=== PATIENT | female | born 1940 | race Caucasian/White ===

== ENCOUNTER → 2017-03-26 | Outpatient (CLI) | payer OTHER | LOC: RAD 13:10 | DX: R06.00 Dyspnea, unspecified (principal) ==

== ENCOUNTER 2019-06-27 19:20 | Emergency (ER) | payer OTHER ==
[~2019-06-27] VITALS: Ht 154.9 cm; Wt 56.7 kg
[2019-06-27 20:00] LABS: BASOPHILS 0.8 % (0.0-2.0); EOSINOPHILS 4.2 % (0.0-3.0); HEMATOCRIT 32.1 % (37.0-47.0); HEMOGLOBIN 10.8 gm/dL (12.0-15.0); MCH 29.5 pg (26.0-34.0); MCHC 33.6 g/dL (28.0-37.0); MCV 87.9 fL (80.0-100.0); MONOCYTES 9.8 % (1.0-8.0); PLATELET COUNT 413 thou/uL (150-400); POLYS 62.2 % (36.0-66.0); RBC 3.65 mil/uL (4.20-5.00); WBC 6.4 thou/uL (4.0-11.0)
[2019-06-27 20:10] VITALS: BP 97/57
[2019-06-27 20:11] LABS: ANION GAP 10 mmol/L (7-16); BUN 31 mg/dL (7-18); CALCIUM 8.6 mg/dL (8.5-10.1); CHLORIDE 97 mmol/L (98-107); CO2 22 mmol/L (21-32); CREATININE 1.6 mg/dL (0.6-1.0); GLUCOSE 111 mg/dL (74-106); POTASSIUM 4.3 mmol/L (3.5-5.1); SODIUM 129 mmol/L (136-145)
[2019-06-27] MEDS ORDERED: LUTEIN6 MG PO (20:11)
[2019-06-27] MEDS ORDERED: VITAMIN B-6100 MG PO (20:11)
[2019-06-27] MEDS ORDERED: LISINOPRIL20 MG PO (20:11)
[2019-06-27] MEDS ORDERED: SERTRALINE HCL50 MG PO (20:11)
[2019-06-27] MEDS ORDERED: SINGULAIR 10 MG10 M1 PO (20:11)
[2019-06-27] MEDS ORDERED: FUROSEMIDE 40 M40 MG PO (20:11)
[2019-06-27] MEDS ORDERED: KLOR-CON M2020 MEQ PO (20:11)
[2019-06-27] MEDS ORDERED: LEVALBUTEROL TA15 GM INH (20:12)
[2019-06-27] MEDS ORDERED: SPIRIVA18 MCG INH (20:12)
[2019-06-27] MEDS ORDERED: FOLIC ACID1 MG PO (20:12)
[2019-06-27] MEDS ORDERED: FLONASE 0.05%50 MCG NARES (20:12)
[2019-06-27] MEDS ORDERED: DILTIAZEM HCL30 MG PO (20:12)
[2019-06-27] MEDS ORDERED: QVAR REDIHALE10.6 G1 INH (20:13)
[2019-06-27 20:22] LABS: ALBUMIN 3.8 g/dL (3.4-5.0); SGOT 18 U/L (15-37); SGPT 25 U/L (30-65); TOTAL BILIRUBIN 0.3 mg/dL (<0.1-1.0); TOTAL PROTEIN 7.4 g/dL (6.4-8.2); TROPONIN-I <0.06 ng/mL (<0.06)
--- NOTE | 2019-06-28 09:01 | EKG ---
[facility] [place] [address] ELECTROCARDIOGRAM REPORT Name: SHELLIE LOVELL [id number] Admission: 06/27/19 Attend Phys: Discharge: 06/27/19 Date of : 42 Report #: [id number] THIS REPORT FOR: cc: Fer Arguello MD, Michael J. MD Couchonnal, Luis F. MD ~ THIS REPORT FOR: //name// [facility] ED Test Date: 2019-06-27 Test Time: 19:54:02 Pat Name: SHELLIE LOVELL Department: Room: Gender: F Administrative Underwriter: gudelia : 1940 Requested By: Theodore Tobias Order Number: [id number] MD: Humble Bowens Measurements Intervals [place] Rate: 67 P: 70 MA: 130 QRS: 34 QRSD: 79 T: 38 QT: 418 QTc: 442 Interpretive Statements Sinus rhythm Abnormal R-wave progression, early transition Compared to ECG 11/12/1999 19:28:56 Poor R-wave progression no longer present Electronically Signed On 06-28-2019 8:59:18 CDT by Humble Bowens [email or web address] <ELECTRONICALLY SIGNED> By: Humble Bowens MD 06/28/1958 53 53 Humble Bowens MD /EPI
== END 2019-06-27 21:32 | disposition home or self-care (01) ==
LOC: ER 19:20
PROVIDERS: Emergency Medicine
DX: S60.012A Contusion of left thumb without damage to nail, initial encounter (principal); S09.90XA Unspecified injury of head, initial encounter; R07.89 Other chest pain; Z79.899 Other long term (current) drug therapy; Z88.6 Allergy status to analgesic agent; V43.62XA Car passenger injured in collision with other type car in traffic accident, initial encounter; Y93.89 Activity, other specified; Y92.89 Other specified places as the place of occurrence of the external cause; Y99.8 Other external cause status

== ENCOUNTER 2019-11-20 16:10 | Emergency (ER) | payer OTHER, BC ==
[~2019-11-20] VITALS: Ht 154.9 cm; Wt 56.7 kg
[~2019-11-20 16:10] MED LIST: DILTIAZEM HCL30 MG PO; FLONASE 0.05%50 MCG NARES; FOLIC ACID1 MG PO; FUROSEMIDE 40 M40 MG PO; KLOR-CON M2020 MEQ PO; LEVALBUTEROL TA15 GM INH; LISINOPRIL20 MG PO; LUTEIN6 MG PO; QVAR REDIHALE10.6 G1 INH; SERTRALINE HCL50 MG PO; SINGULAIR 10 MG10 M1 PO; SPIRIVA18 MCG INH; VITAMIN B-6100 MG PO
[2019-11-20] MEDS ORDERED: MOBIC7.5 MG PO (18:09)
[2019-11-20 19:18] VITALS: BP 132/88
== END 2019-11-20 19:18 | disposition home or self-care (01) ==
LOC: ER 16:10
DX: M25.552 Pain in left hip (principal); Z79.899 Other long term (current) drug therapy; Z88.5 Allergy status to narcotic agent

== ENCOUNTER → 2019-11-23 | Emergency (ER) | payer OTHER, BC ==
[~2019-11-23] VITALS: Ht 154.9 cm; Wt 54.4 kg
[~2019-11-23] MED LIST changes: +MOBIC7.5 MG PO; +PROTONIX 20 MG20 MG PO
[2019-11-23 12:42] VITALS: BP 141/74
[2019-11-23 13:33] LABS: ABSOLUTE NEUTROPHILS 8.8 thou/uL (1.4-8.2); BASOPHILS 0.3 % (0.0-2.0); HEMATOCRIT 31.5 % (37.0-47.0); HEMOGLOBIN 10.4 gm/dL (12.0-15.0); LYMPHOCYTES 7.8 % (24.0-44.0); MCH 29.3 pg (26.0-34.0); MCHC 33.1 g/dL (28.0-37.0); MCV 88.4 fL (80.0-100.0); MONOCYTES 2.6 % (1.0-8.0); PLATELET COUNT 393 thou/uL (150-400); POLYS 88.3 % (36.0-66.0); RBC 3.57 mil/uL (4.20-5.00); RDW 15.3 % (10.5-14.5)
[2019-11-23 13:41] LABS: ANION GAP 10 mmol/L (7-16); BUN 29 mg/dL (7-18); CALCIUM 8.8 mg/dL (8.5-10.1); CHLORIDE 95 mmol/L (98-107); CO2 25 mmol/L (21-32); CREATININE 1.5 mg/dL (0.6-1.0); GLUCOSE 140 mg/dL (74-106); POTASSIUM 3.9 mmol/L (3.5-5.1); SODIUM 130 mmol/L (136-145)
[2019-11-23 13:50] LABS: TROPONIN-I <0.06 ng/mL (<0.06)
--- NOTE | 2019-11-23 16:10 | EKG ---
[facility] [place] [address] ELECTROCARDIOGRAM REPORT Name: SHELLIE LOVELL Room #: REG [facility].#: [id number] Admission: 11/23/19 Attend Phys: Discharge: Date of : 42 Report #: [id number] THIS REPORT FOR: cc: Glenn Rivera MD, Neal A. MD Santiago, Patrick MD [facility] ~ THIS REPORT FOR: //name// [facility] ED Test Date: 2019-11-23 Test Time: 12:59:40 Pat Name: SHELLIE LOVELL Department: Room: Gender: F New Media Strategist: [facility] : 1940 Requested By: Hawk Torres Order Number: [id number] MD: Russell Glez Measurements Intervals [place] Rate: 65 P: 64 DC: 144 QRS: 49 QRSD: 75 T: 56 QT: 440 QTc: 458 Interpretive Statements Sinus rhythm Abnormal R-wave progression, early transition Compared to ECG 06/27/2019 19:54:02 No significant changes Electronically Signed On 11-23-2019 16:10:15 CDT by Russell Glez [email or web address] <ELECTRONICALLY SIGNED> By: Russell Glez MD, FACC 11/23/19 1610 1259 1259 Russell Glez MD, [facility] /EPI
== END ==
LOC: ER 12:38
PROVIDERS: Emergency Medicine
DX: R06.02 Shortness of breath (principal); Z79.899 Other long term (current) drug therapy; Z88.5 Allergy status to narcotic agent; Z20.828 Contact with and (suspected) exposure to other viral communicable diseases

== ENCOUNTER 2019-11-28 15:24 | Inpatient (IN) | payer OTHER, BC ==
[~2019-11-28] VITALS: Ht 154.9 cm; Wt 59.0 kg
[2019-11-28 15:25] VITALS: BP 147/108
[2019-11-28 16:50] LABS: HEMATOCRIT 29.6 % (37.0-47.0); HEMOGLOBIN 9.8 gm/dL (12.0-15.0); MCH 29.3 pg (26.0-34.0); MCHC 33.2 g/dL (28.0-37.0); MCV 88.3 fL (80.0-100.0); RBC 3.36 mil/uL (4.20-5.00); WBC 8.8 thou/uL (4.0-11.0)
[2019-11-28 17:04] LABS: ANION GAP 8 mmol/L (7-16); BUN 20 mg/dL (7-18); CALCIUM 8.8 mg/dL (8.5-10.1); CHLORIDE 93 mmol/L (98-107); CO2 28 mmol/L (21-32); CREATININE 1.2 mg/dL (0.6-1.0); GLUCOSE 82 mg/dL (74-106); POTASSIUM 3.8 mmol/L (3.5-5.1); SODIUM 129 mmol/L (136-145)
[2019-11-28 17:13] LABS: TROPONIN-I <0.06 ng/mL (<0.06)
[2019-11-28 19:16] VITALS: BP 124/57
--- NOTE | 2019-11-28 20:14 | NUR ---
ATTEMPTED TO CALL REPORT TO 3W. NO ANSWER.
--- NOTE | 2019-11-28 20:31 | NUR ---
ATTEMPTED TO CALL REPORT TO 3W SECOND TIME WITH NO ANSWER
[2019-11-28 21:00] VITALS: BP 129/57
[2019-11-28 21:03] VITALS: BP 128/51
--- NOTE | 2019-11-28 22:35 | NUR ---
ASSESSMENT: PT ARRIVED TO THE UNIT AT APPROXIMATELY 2100 ACCOMPANIED BY STAFF MEMEBER. PT IS ALERT AND ORIENT TIMES THREE, VERY FORGETFUL. PT HAS TO BE CONSTANTLY REMINDED ON USING THE CALL BUTTON, NOT GETTING OUT OF BED WITHOUT ASSISTANCE. LEAVING YELLOW SOCKS ON, HOW TO USE THE PHONE OR CHANGE THE TELEVISION STATION. VSS, AFEBRILE. COVID ANTIGEN WAS NEGATIVE, AWAITING PCR RESULT. PT C/O FORRESTER AND LEFT GROIN PAIN. UP TO BSC WITH MINIMAL ASSISTANCE. WAITING FOR ORDERS FROM Bib OLSON PT IS NOT ON THE MONITOR. STATUS IS MEDICAL-SURGICAL. WILL CONTINUE TO MONITOR.
[2019-11-29 03:54] VITALS: BP 121/58
--- NOTE | 2019-11-29 04:13 | NUR ---
SPOKE WITH [employer] EDWARDS. WILL BE IN TO SEE PT IN THE AM. ORDERED ACETAMINOPHEN PRN AND A REG DIET FOR NOW.
--- NOTE | 2019-11-29 05:57 | NUR ---
PT NEGATIVE FOR CONCEPCION. STRUCTURAL ENGINEERING DRAFTING OFFICER STEVE NOTIFIED. DR. TIJERINA WILL BE IN LATER THE AM...NEEDS TO CLEAR PT TO TX.
--- NOTE | 2019-11-29 07:26 | EKG ---
[facility] [place] [address] ELECTROCARDIOGRAM REPORT Name: SHELLIE LOVELL Room #: 359-P ADM IN M.R.#: [id number] Admission: 11/28/19 Attend Phys: Glenn Rivera MD Discharge: Date of : 42 Report #: [id number] THIS REPORT FOR: cc: Glenn Rivera MD, Neal A. MD Lundgren,Kristofer Doty MD [facility] ~ THIS REPORT FOR: //name// [facility] ED Test Date: 2019-11-28 Test Time: 16:56:08 Pat Name: SHELLIE LOVELL Department: Room: Gender: F Warehouse Coordinator: Nirali : 1940 Requested By: Roman Raya Order Number: [id number] MD: Kristofer Davidson Measurements Intervals [place] Rate: 67 P: 59 AR: 147 QRS: 18 QRSD: 88 T: 32 QT: 437 QTc: 462 Interpretive Statements Sinus rhythm Abnormal R-wave progression, early transition Compared to ECG 11/23/2019 12:59:40 No significant changes Electronically Signed On 11-29-2019 7:26:31 CDT by Kristofer Davidson [email or web address] <ELECTRONICALLY SIGNED> By: Kristofer Davidson MD, FAC 11/29/19 0726 1656 1656 Kristofer Davidson MD, [facility] /EPI
[2019-11-29 08:00] VITALS: BP 144/72
[2019-11-29] MEDS ORDERED: RAYOS5 MG PO (13:09)
[2019-11-29 13:13] VITALS: BP 144/72
[2019-11-29 14:55] VITALS: BP 144/72
--- NOTE | 2019-11-29 15:42 | NUR ---
ASSUMED PATIENT CARE AT 0700. A/O X2. CONFUSED. COVID AND BLE US NEGATIVE. DC TO HOME NOW.
== END 2019-11-29 15:29 | disposition home or self-care (01) | DRG 191 ==
LOC: ER 15:24 → 3W 21:06
PROVIDERS: Emergency Medicine; ADMIT Family Medicine; ATTEND Family Medicine
DX: J44.1 Chronic obstructive pulmonary disease with (acute) exacerbation (principal); E87.1 Hypo-osmolality and hyponatremia; R10.31 Right lower quadrant pain; I34.0 Nonrheumatic mitral (valve) insufficiency; J30.2 Other seasonal allergic rhinitis; R07.9 Chest pain, unspecified; M19.90 Unspecified osteoarthritis, unspecified site; Z20.828 Contact with and (suspected) exposure to other viral communicable diseases; Z79.899 Other long term (current) drug therapy; Z88.5 Allergy status to narcotic agent; Z99.81 Dependence on supplemental oxygen
CPT/HCPCS: 10879

== ENCOUNTER 2020-05-27 08:58 | Inpatient (IN) | payer OTHER, BC ==
[~2020-05-27] VITALS: Ht 154.9 cm; Wt 56.7 kg
[~2020-05-27 08:58] MED LIST changes: +RAYOS5 MG PO
[2020-05-27 09:48] VITALS: BP 160/58
[2020-05-27 10:17] LABS: ABSOLUTE NEUTROPHILS 5.5 thou/uL (1.4-8.2); BASOPHILS 0.6 % (0.0-2.0); EOSINOPHILS 3.9 % (0.0-3.0); HEMATOCRIT 27.8 % (37.0-47.0); HEMOGLOBIN 9.1 gm/dL (12.0-15.0); LYMPHOCYTES 13.2 % (24.0-44.0); MCH 30.5 pg (26.0-34.0); MCHC 32.6 g/dL (28.0-37.0); MCV 93.4 fL (80.0-100.0); MONOCYTES 8.1 % (1.0-8.0); PLATELET COUNT 355 thou/uL (150-400); POLYS 74.2 % (36.0-66.0); RBC 2.97 mil/uL (4.20-5.00); RDW 15.3 % (10.5-14.5); WBC 7.4 thou/uL (4.0-11.0)
[2020-05-27 10:21] LABS: CALCIUM 8.5 mg/dL (8.5-10.1); CREATININE 1.5 mg/dL (0.6-1.0); POTASSIUM 4.9 mmol/L (3.5-5.1)
[2020-05-27 10:27] LABS: ALBUMIN 3.3 g/dL (3.4-5.0); TOTAL BILIRUBIN 0.3 mg/dL (0.2-1.0); TOTAL PROTEIN 6.4 g/dL (6.4-8.2)
[2020-05-27 12:35] LABS: URINE BILIRUBIN NEGATIVE (Negative); URINE BLOOD NEGATIVE (Negative); URINE CLARITY CLEAR; URINE COLOR YELLOW; URINE GLUCOSE-RANDOM* NEGATIVE (Negative); URINE KETONES NEGATIVE (Negative); URINE LEUKOCYTES-REFLEX TRACE (Negative); URINE NITRITE-REFLEX NEGATIVE (Negative); URINE PROTEIN (DIPSTICK) NEGATIVE (Negative); URINE SPECIFIC GRAVITY <= 1.005 (1.005-1.035); URINE UROBILINOGEN 0.2 E.U./dl (0.2-1.0)
[2020-05-27 12:45] VITALS: BP 155/65
[2020-05-27 13:03] VITALS: BP 155/65
[2020-05-27 17:07] VITALS: BP 162/69
--- NOTE | 2020-05-27 18:25 | NUR ---
[age] YEAR OLD FEMALE ADMITTED TO [facility] ROOM 464. PT WAS BROUGHT IN TO THE ER PER FAMILY AFTER FALLING AT HOME, AND C/O RIGHT ARM PAIN. PT ALERT AND ORIENTED TIMES THREE. VSS. PT C/O PAIN PRN PAIN MEDICATIONS CONTROLLING PAIN WELL. PT TOLERATES DINNER. PT UP TO BSC WITH ASSIST OF ONE. PT AT BEDSIDE. WILL CONTINUE TO MONITOR.
[2020-05-27 20:04] VITALS: BP 148/68
--- NOTE | 2020-05-28 04:56 | NUR ---
Pt. rested quietly at intervals during the night when checked on during frequent rounds. She c/o pain to the right shoulder and iv pain meds given (see emar) with some relief noted. Right shoulder is in an immobilizer. Assisted up to the bedside comode with gait belt and one assist. Bed alarm is on.
[2020-05-28 07:53] VITALS: BP 168/82
[2020-05-28] MEDS ORDERED: TRAMADOL 50 MG50 MG PO (10:07)
[2020-05-28 10:39] VITALS: BP 168/82
--- NOTE | 2020-05-28 12:26 | NUR ---
Assumed pt care at 7am.Pt in bed slleping but arousable.Assessment completed. vss.Pt tolerated meds and diet. Dr Rivera and alyciaho group here early this shift.Dc order noted.Dr Che notified about pt dc home today at noon.He okay dc. Dc summary compile and reviewed with pt and spouse.Saline lock dc'd. At 1230,pt dc home in wc with spouse accompanied by unit sec.
== END 2020-05-28 12:30 | disposition home or self-care (01) | DRG 563 ==
LOC: ER 09:46 → EROBS 12:47 → 4W 13:04
PROVIDERS: Emergency Medicine; ADMIT Surgery; ATTEND Surgery
PROC: 2W38XYZ Immobilization of Right Upper Extremity using Other Device (ICD-10-PCS; principal; 2020-05-27)
DX: S42.254A Nondisplaced fracture of greater tuberosity of right humerus, initial encounter for closed fracture (principal); W18.39XA Other fall on same level, initial encounter; D64.9 Anemia, unspecified; M19.90 Unspecified osteoarthritis, unspecified site; Z79.899 Other long term (current) drug therapy; Z88.5 Allergy status to narcotic agent; Y93.89 Activity, other specified; Y92.89 Other specified places as the place of occurrence of the external cause; Y99.8 Other external cause status
CPT/HCPCS: 10040

== ENCOUNTER 2020-07-28 16:48 | Inpatient (IN) | payer OTHER, BC ==
[~2020-07-28] VITALS: Ht 154.9 cm; Wt 55.3 kg
[~2020-07-28 16:48] MED LIST changes: +TRAMADOL 50 MG50 MG PO
[2020-07-28 16:50] VITALS: BP 124/59
[2020-07-28 19:06] LABS: ABSOLUTE NEUTROPHILS 6.1 thou/uL (1.4-8.2); BASOPHILS 0.5 % (0.0-2.0); EOSINOPHILS 5.9 % (0.0-3.0); HEMATOCRIT 27.1 % (37.0-47.0); HEMOGLOBIN 9.1 gm/dL (12.0-15.0); LYMPHOCYTES 17.5 % (24.0-44.0); MCH 31.5 pg (26.0-34.0); MCHC 33.5 g/dL (28.0-37.0); MONOCYTES 11.3 % (1.0-8.0); PLATELET COUNT 378 thou/uL (150-400); POLYS 64.8 % (36.0-66.0); RBC 2.88 mil/uL (4.20-5.00); RDW 13.8 % (10.5-14.5); WBC 9.4 thou/uL (4.0-11.0)
[2020-07-28 19:32] LABS: ANION GAP 7 mmol/L (7-16); BUN 19 mg/dL (7-18); CALCIUM 8.6 mg/dL (8.5-10.1); CHLORIDE 95 mmol/L (98-107); CO2 25 mmol/L (21-32); CREATININE 1.3 mg/dL (0.6-1.0); GLUCOSE 121 mg/dL (74-106); POTASSIUM 4.4 mmol/L (3.5-5.1); SODIUM 127 mmol/L (136-145)
[2020-07-28 19:39] LABS: ALBUMIN 3.6 g/dL (3.4-5.0); SGOT 19 U/L (15-37); SGPT 21 U/L (14-59); TOTAL BILIRUBIN 0.3 mg/dL (0.2-1.0); TROPONIN-I <0.06 ng/mL (<0.06)
[2020-07-28 20:17] LABS: TOTAL PROTEIN 6.7 g/dL (6.4-8.2)
[2020-07-28 20:49] LABS: URINE BILIRUBIN NEGATIVE (Negative); URINE BLOOD NEGATIVE (Negative); URINE CLARITY CLEAR; URINE COLOR YELLOW; URINE GLUCOSE-RANDOM* NEGATIVE (Negative); URINE KETONES NEGATIVE (Negative); URINE LEUKOCYTES-REFLEX NEGATIVE (Negative); URINE NITRITE-REFLEX NEGATIVE (Negative); URINE PROTEIN (DIPSTICK) NEGATIVE (Negative); URINE SPECIFIC GRAVITY <= 1.005 (1.005-1.035); URINE UROBILINOGEN 0.2 E.U./dl (0.2-1.0)
[2020-07-28 22:21] VITALS: BP 127/51
[2020-07-28] MEDS ORDERED: CARAFATE 1 GM TA1 G1 PO (22:37)
[2020-07-28] MEDS ORDERED: CARDIZEM30 MG PO (22:39)
[2020-07-28] MEDS ORDERED: FUROSEMIDE 40 M40 MG PO (22:40)
[2020-07-28] MEDS ORDERED: FOLIC ACID1 MG PO (22:40)
[2020-07-28] MEDS ORDERED: LUTEIN6 MG PO (22:40)
[2020-07-28] MEDS ORDERED: FLONASE 0.05%50 MCG NASAL (22:40)
[2020-07-28] MEDS ORDERED: LISINOPRIL10 MG PO (22:41)
[2020-07-28] MEDS ORDERED: PROTONIX40 M2 PO (22:41)
[2020-07-28] MEDS ORDERED: SINGULAIR 10 MG10 M1 PO (22:41)
[2020-07-28] MEDS ORDERED: VITAMIN B-121000 MC2 PO (22:42)
[2020-07-28] MEDS ORDERED: ZOLOFT50 M1 PO (22:42)
[2020-07-28 23:04] VITALS: BP 146/56
--- NOTE | 2020-07-28 23:30 | NUR ---
RECIEVED PT FROM ED , PT ALERT TO SELF AND PLACE OPTICS TECHNICAL OFFICER PLACED SHOWS NSR. DATA BASE COMPLETED AND ASSEMENT COMPLETED.PT IMPULSIVE, BED ALARM INTACT FOR SAFETY YELLOW SOCKS PLACED , BUT PT CONTINUE TO REMOVE YELLOW SOCKS. IV FLUIDS STARTED.
[2020-07-29 04:09] VITALS: BP 146/68
[2020-07-29 04:11] VITALS: BP 149/74; BP 159/74
[2020-07-29 04:27] LABS: ANION GAP 9 mmol/L (7-16); BUN 18 mg/dL (7-18); CALCIUM 8.7 mg/dL (8.5-10.1); CHLORIDE 98 mmol/L (98-107); CO2 25 mmol/L (21-32); CREATININE 1.3 mg/dL (0.6-1.0); GLUCOSE 89 mg/dL (74-106); SODIUM 132 mmol/L (136-145)
[2020-07-29 04:28] LABS: POTASSIUM 3.4 mmol/L (3.5-5.1)
[2020-07-29 04:29] LABS: TROPONIN-I <0.06 ng/mL (<0.06)
--- NOTE | 2020-07-29 11:58 | 2DMMODE ---
[facility] [place] [address] 2 D/M-MODE ECHOCARDIOGRAM Name: SHELLIE LOVELL Room #: 363-P ADM IN M.R.#: [id number] Admission: 07/28/20 Attend Phys: Shaq Riley MD Discharge: Date of : 42 Report #: [id number] THIS REPORT FOR: cc: Glenn Rivera MD, Neal A. MD Lundgren, Craig H. MD [facility] ~ APPROVED REPORT Study performed: 07/29/2020 10:28:07 EXAM: Comprehensive 2D, Doppler, and color-flow Echocardiogram Patient Location: Bedside Room #: 363 Status: on-call BSA: 1.55 HR: 82 bpm BP: 149/74 mmHg Rhythm: NSR Other Information Study Quality: Adequate Indications Syncope Hx: CT, HTN, COPD. 2D Dimensions RVDd: 23.76 mm IVSd: 10.85 (7-11mm) LVOT Diam: 18.96 (18-24mm) LVDd: 38.06 mm PWd: 9.35 (7-11mm) LVDs: 23.68 (25-40mm) Left Atrium: 31.29 (27-40mm) Aortic Root: 28.76 mm Volumes Left Atrial Volume (Systole) Single Plane 4CH: 37.57 mL Single Plane 2CH: 37.72 mL LA ESV Index: 26.00 mL/m2 Aortic Valve AoV Peak Maxi.: 1.56 m/s AO Peak Gr.: 9.71 mmHg LVOT Max P.66 mmHg LVOT Max V: 1.38 m/s [facility] [address] [place] [address] 2 D/M-MODE ECHOCARDIOGRAM Name: SHELLIE LOVELL Room #: 363-P [facility] IN [facility]#: [id number] Admission: 07/28/20 Attend Phys: Shaq Riley MD Discharge: Date of : 42 Report #: [id number] JOSEPH Vmax: 2.51 cm2 Mitral Valve E/A Ratio: 0.7 MV Decel. Time: 273.25 ms MV E Max Maxi.: 1.03 m/s MV A Maxi.: 1.41 m/s MV PHT: 79.24 ms IVRT: 65.74 ms Pulmonary Vein P Vein S: 0.74 m/s P Vein A: 0.30 m/s P Vein D: 0.56 m/s P Vein A Dur.: 100.3 msec P Vein S/D Ratio: 1.32 Tricuspid Valve TR Peak Maxi.: 2.73 m/s RAP Estimate: 5.00 mmHg TR Peak Gr.: 30.00 mmHg PA Pressure: 35.00 mmHg Left Ventricle The left ventricle is normal size. There is normal LV segmental wall motion. There is normal left ventricular wall thickness. Left ventricular systolic function is normal. LVEF is 60-65%. Mild diastolic dysfunction Right Ventricle The right ventricle is normal size. The right ventricular systolic function is normal. Atria The left atrium size is normal. The right atrium size is normal. Aortic Valve The aortic valve is normal in structure. Trace aortic regurgitation. There is no aortic valvular stenosis. Mitral Valve Mild mitral annular calcification. There is no mitral valve regurgitation noted. No evidence of mitral valve stenosis. Tricuspid Valve The tricuspid valve is normal in structure. Trace tricuspid regurgitation. Estimated PAP is 35mmHg. [facility] [address] [place] [address] 2 D/M-MODE ECHOCARDIOGRAM Name: SHELLIE LOVELL Room #: 363-P [facility] IN M.R.#: [id number] Admission: 07/28/20 Attend Phys: Shaq Riley MD Discharge: Date of : 42 Report #: [id number] Pulmonic Valve Pulmonic valve is not well visualized. Great Vessels The aortic root is normal in size. Ascending aorta is not well visualized. IVC is normal in size and collapses >50% with inspiration. Pericardium There is no pericardial effusion. <Conclusion> Left ventricular systolic function is normal. There is normal LV segmental wall motion. LVEF is 60-65%. Mild diastolic dysfunction The aortic valve is normal in structure. Trace aortic regurgitation, no stenosis. Mild mitral annular calcification. No mitral valve regurgitation. Trace tricuspid regurgitation. Estimated pulmonary artery pressure of 35mmHg. There is no pericardial effusion. <ELECTRONICALLY SIGNED> By: Kristofer Davidson MD, FACC 07/29/20 1158 1158 1158 Kristofer Davidson MD, FAC /INF
--- NOTE | 2020-07-29 12:30 | EKG ---
[address] [place] [address] ELECTROCARDIOGRAM REPORT Name: SHELLIE LOVELL Room #: 363-P ADM IN M.R.#: [id number] Admission: 07/28/20 Attend Phys: Shaq Riley MD Discharge: Date of : 42 Report #: [id number] [facility] ED Test Date: 2020-07-28 Test Time: 17:00:34 Pat Name: SHELLIE LOVELL Department: Room: 363 Gender: F Rabbit Fancier: JCHAIHOLGER : 1940 Requested By: Carl Vegas Order Number: [id number] MD: Kristofer Davidson Measurements Intervals [place] Rate: 66 P: 54 WV: 154 QRS: 36 QRSD: 84 T: 41 QT: 434 QTc: 455 Interpretive Statements Sinus rhythm Early R wave progression Compared to ECG 11/28/2019 16:56:08 No significant changes Electronically Signed On 07-29-2020 12:30:30 CDT by Kristofer Davidson [email or web address] <ELECTRONICALLY SIGNED> By: Kristofer Davidson MD, [facility] 07/29/20 1230 1700 99 Kristofer Davidson MD, FACC /EPI
[2020-07-29 15:38] VITALS: BP 153/65
[2020-07-29 20:11] VITALS: BP 143/69
[2020-07-30 04:04] VITALS: BP 131/59
--- NOTE | 2020-07-30 04:37 | NUR ---
kept bed alarm on, p[t forgets and gets out of bed to bsc, without assist. she complained of headache pain around midnight. then she denied pain later on the in morning. no medication given for pain.
[2020-07-30 08:05] VITALS: BP 170/71
[2020-07-30 11:56] VITALS: BP 170/71
--- NOTE | 2020-07-30 15:45 | NUR ---
ASSUMED PATIENT CARE AT 0700. A/O 3. CONFUSED. UP AD [place]. NO DIZZINESS. DC TO HOME AT 1230
== END 2020-07-30 12:51 | disposition home or self-care (01) | DRG 918 ==
LOC: ER 16:48 → EROBS 21:37 → 3W 22:43
PROVIDERS: Emergency Medicine; Nurse Practitioner Family; ADMIT Hospitalist; ATTEND Hospitalist
DX: T40.421A Poisoning by tramadol, accidental (unintentional), initial encounter (principal); N17.9 Acute kidney failure, unspecified; E87.1 Hypo-osmolality and hyponatremia; M94.0 Chondrocostal junction syndrome [Tietze]; E86.0 Dehydration; R00.1 Bradycardia, unspecified; R07.9 Chest pain, unspecified; M19.90 Unspecified osteoarthritis, unspecified site; J44.9 Chronic obstructive pulmonary disease, unspecified; I25.10 Atherosclerotic heart disease of native coronary artery without angina pectoris; D64.9 Anemia, unspecified; I12.9 Hypertensive chronic kidney disease with stage 1 through stage 4 chronic kidney disease, or unspecified chronic kidney disease; N18.9 Chronic kidney disease, unspecified; I34.0 Nonrheumatic mitral (valve) insufficiency; T50.995A Adverse effect of other drugs, medicaments and biological substances, initial encounter; Z88.5 Allergy status to narcotic agent; Z79.899 Other long term (current) drug therapy; I25.2 Old myocardial infarction; Y92.89 Other specified places as the place of occurrence of the external cause; Z20.822 Contact with and (suspected) exposure to COVID-19; R55 Syncope and collapse
CPT/HCPCS: 10879